=== PATIENT | male | born 1940 | race Caucasian/White ===

== ENCOUNTER → 2017-07-08 | Outpatient (CLI) | payer OTHER, MEDICARE ==
[~2017-07-08] MED LIST: ACET-1175 PO; ASPI-232 PO; FAMO20TA11 PO; FINA5TAB PO; FRS/40 PO; FURO-85 PO; LEVO75TA5 PO; LPR25 PO; NITR0.4S UT; POTA1TAB97 PO; PRLSR20 PO; SALI1SPR3 NAE; SERT1TAB68 PO; SIMV10TA2 PO; TAMS0.4C38 PO; TRAM-10 PO
--- NOTE | 2017-07-08 14:33 | DIAGNOSTIC IMAGING REPORT ---
L-SPINE MIN 4 VIEWS ROUTINE HISTORY: 76 years-old Male M51.9 Lumbar disc [id number] acute lumbar spine pain without reported trauma. COMPARISON: None available TECHNIQUE: 5 views of the lumbar spine FINDINGS: There is 30% anterior endplate compression of T12 without significant retropulsion, age indeterminate however appears chronic. The remaining vertebral body heights are well-maintained without additional compression deformity. Multilevel advanced facet arthropathy is present with endplate spurring. Severe intervertebral disc space narrowing is noted at L5-S1. Battery pack projects over the right lower abdomen with leads projecting superiorly. Surgical clips projects over the right upper abdomen. IMPRESSION: 1. 30% anterior endplate compression deformity of T12 without significant retropulsion is age indeterminate without comparison however appears chronic. 2. Multilevel facet arthropathy, endplate spurring and intervertebral disc space narrowing, most pronounced at L5-S1. The above report was generated using voice recognition software. It may contain grammatical, syntax or spelling errors. Electronically signed by: Tunde Gray M.D. 07/08/2017 2:32 PM Dictated Date/Time: 07/08/2017 2:15 PM
--- NOTE | 2017-07-08 14:42 | DIAGNOSTIC IMAGING REPORT ---
CAROTID DOPPLER NECK ART HISTORY: Mental status change G45.9 Transient ischemic attack, [id number] COMPARISON: None. TECHNIQUE: Real-time, grayscale, and color Doppler sonography of the carotid arteries was performed. Imaging reviewed in the transverse and longitudinal planes. All measurements were calculated based on NASCET criteria. FINDINGS: Antegrade flow is seen in the bilateral vertebral arteries. The brachial pressures are hemodynamically similar. The peak systolic velocity within the right ICA is 61. The right systolic ratio is 0.8. The peak systolic velocity within the left ICA is 72. The left systolic ratio is 0.8. IMPRESSION: No hemodynamically significant stenosis seen within the carotid arteries. The above report was generated using voice recognition software. It may contain grammatical, syntax or spelling errors. Electronically signed by: Asa Martins M.D. 07/08/2017 2:40 PM Dictated Date/Time: 07/08/2017 2:40 PM
== END | disposition home or self-care (01) ==
LOC: C.ULTR 13:18
PROVIDERS: ATTEND Family Medicine
DX: G45.9 Transient cerebral ischemic attack, unspecified (principal); M51.9 Unspecified thoracic, thoracolumbar and lumbosacral intervertebral disc disorder

== ENCOUNTER → 2017-07-23 | Outpatient (CLI) | payer OTHER, MEDICARE ==
[~2017-07-23] MED LIST changes: +OPTIRAY 320 IV PRN
--- NOTE | 2017-07-23 13:43 | DIAGNOSTIC IMAGING REPORT ---
CT ANGIOGRAPHY HEAD COMBO CT DOSE: 666.74 mGy.cm CLINICAL HISTORY: Cerebral aneurysm TECHNIQUE: Unenhanced images were obtained to the brain. CT angiography was then performed in a dynamic helical fashion during intravenous administration of 93 cc Optiray 320. MIP imaging was performed. A dose lowering technique was utilized adhering to the principles of ALARA. COMPARISON STUDY: Outside study dated 04/04/2014 FINDINGS: On the noncontrast study, no intraluminal extra-axial mass lesions are visualized. There is no CT evidence of acute cortical infarction. There is no evidence of midline shift. There is no evidence of acute hemorrhage. There is no evidence of hydrocephalus. 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 There is prominent extra-axial space likely secondary to atrophic changes. Postcontrast images reveal no pathologically enhancing masses. CT angiography reveals no major intracranial branch occlusions. 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 There is no evidence of dural venous sinus thrombosis. 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 Electronically signed by: Blaine Nielsen M.D. 07/23/2017 1:42 PM Dictated Date/Time: 07/23/2017 1:36 PM
== END | disposition home or self-care (01) ==
LOC: C.CTS 12:00
PROVIDERS: ATTEND Physician Assistant
DX: I67.1 Cerebral aneurysm, nonruptured (principal)

== ENCOUNTER → 2017-09-20 | Outpatient (CLI) | payer OTHER, MEDICARE ==
[~2017-09-20] MED LIST changes: -OPTIRAY 320 IV PRN
[2017-09-20 18:27] LABS: BLOOD UREA NITROGEN 23 mg/dl (7-18); BUN/CREATININE RATIO 18.9 (10-20); CALCIUM 9.1 mg/dl (8.5-10.1); CARBON DIOXIDE 35 mmol/L (21-32); CHLORIDE 96 mmol/L (98-107); CREATININE 1.21 mg/dl (0.60-1.40); GLUCOSE 97 mg/dl (70-99); POTASSIUM 3.7 mmol/L (3.5-5.1); SODIUM 138 mmol/L (136-145)
== END | disposition home or self-care (01) ==
LOC: C.LABMFLN 15:41
PROVIDERS: ATTEND Family Medicine
DX: I50.9 Heart failure, unspecified (principal)

== ENCOUNTER → 2018-03-04 | Outpatient (CLI) | payer OTHER, MEDICARE ==
[~2018-03-04] MED LIST changes: +SALI-3 NAE; -SALI1SPR3 NAE
== END | disposition home or self-care (01) ==
LOC: C.PATHSPEC 17:10
PROVIDERS: ATTEND Podiatrist Foot & Ankle Surgery
DX: B07.8 Other viral warts (principal)